=== PATIENT | male | born 1965 | race Caucasian/White ===

== ENCOUNTER → 2019-06-01 08:01 | Outpatient (CLI) | payer MEDICARE, SELFPAY ==
--- NOTE | 2019-06-01 | DI.ECHO.S_ITS ---
[facility] +---------+ : : [address] : : : : [id number] : : : : Phone: [phone]+ Echocardiogram Report + + :Name: AYDEN MONTOYA Study Date: 06/01/2019 Height: 71 in : :[facility] Weight: 300 lb : : Gender: Male BSA: 2.5 m2 : :: 1965 Age: 54 yrs BP: 132/76 mmHg: : Performed By: [facility] : :Referring: REID DAVIS : + + Interpretation Summary 1) Mildly increased left ventricular thickness (concentric) with normal size, normal wall motion, and normal systolic function (EF 55-60%). 2) The right ventricle is mildly dilated. The right ventricular systolic function is normal. 3) No significant valvular abnormalities. 4) The aortic root is borderline dilated at 3.8cm. 5) No prior Echo available for comparison. Procedure: A two-dimensional transthoracic echocardiogram with color flow and Doppler was performed. The study quality was technically adequate. There is no prior echocardiogram noted for this patient. The patient was in normal sinus rhythm during the exam. Left Ventricle: The left ventricle is normal in size. There is mild concentric left ventricular hypertrophy. Left ventricular systolic function is normal without focal wall motion abnormalities. The ejection fraction is estimated to be 55-60%. Left ventricular wall motion is normal. Right Ventricle: The right ventricle is mildly dilated. The right ventricular systolic function is normal. Atria: The left atrial size is normal. Right atrial size is normal. The interatrial septum is intact with no evidence for an atrial septal defect. Mitral Valve: The mitral valve is normal in structure and function. There is trace mitral regurgitation. Aortic Valve: The aortic valve is trileaflet. The aortic valve opens well. There is no aortic valve stenosis. No aortic regurgitation is present. Tricuspid Valve: The tricuspid valve is normal in structure and function. There is trace tricuspid regurgitation. Pulmonary artery pressures cannot be estimated because of the lack of a measurable TR jet velocity. Pulmonic Valve: The pulmonic valve is normal in structure and function. There is mild pulmonic regurgitation. Great Vessels: The aortic root is borderline dilated. The ascending aorta is at the upper limits of normal in size. The pulmonary artery is normal size. The IVC is of normal diameter and collapses greater than 50% with a sniff. This suggests a low right atrial pressure of 3 mm Hg. Pericardium/ Pleura There is no pericardial effusion. There is no pleural effusion. MMode/2D Measurements & Calculations LVIDd: 5.3 cm LVOT diam: 2.3 cm LVIDs: 3.3 cm Ao root diam: 3.8 cm FS: 36.2 % asc Aorta Diam: 3.8 cm EPSS: 0.54 cm IVSd: 1.4 cm LVPWd: 1.3 cm LV vasquez. diameter/BSA (cm/m^2): 2.1 LV sys. diameter/BSA (cm/m^2): 1.3 LA A2 area: 20.7 cm2 RA long axis: 4.7 cm LA A4 area: 19.2 cm2 RA area: 12.2 cm2 LA length (vol): 5.3 cm RA vol: 26.9 ml LA vol: 64.4 ml RA : 10.7 ml/m2 LA vol index: 25.7 ml/m2 TAPSE: 1.9 cm Doppler Measurements & Calculations Ao V2 max: 128.1 cm/sec LVOT Max Brayan: 94.1 cm/sec Ao V2 mean: 87.4 cm/sec LV V1 max P.5 mmHg Ao max P.6 mmHg LV V1 VTI: 22.0 cm Ao mean P.4 mmHg OCTAVIO(I,D): 3.2 cm2 Ao V2 VTI: 27.6 cm OCTAVIO(V,D): 3.0 cm2 sev ratio: 0.80 OCTAVIO indexed to BSA (cm^2/m^2): 1.3 MV E max brayan: 68.1 cm/sec PA V2 max: 71.3 cm/sec MV A max brayan: 50.7 cm/sec PA V2 mean: 49.6 cm/sec MV E/A: 1.3 PA mean P.1 mmHg Med Peak E' Brayan: 8.7 cm/sec PA Accel Time: 0.17 sec E/E' med: 7.9 Lat Peak E' Brayan: 11.3 cm/sec E/E' lat: 6.0 E/e' average: 6.9 MV dec time: 0.19 sec SV(LVOT): 89.3 ml Reading Physician:05:10 PM
== END ==
PROVIDERS: PCP Internal Medicine; Visit Provider Internal Medicine
DX: I37.1 Nonrheumatic pulmonary valve insufficiency (principal); I42.9 Cardiomyopathy, unspecified
CPT/HCPCS: 93306

== ENCOUNTER → 2022-07-29 13:01 | Outpatient (CLI) | payer OTHER, SELFPAY ==
--- NOTE | 2022-07-29 | DI.MRI.S_ITS ---
PROCEDURE: MR CERVICAL SPINE WO CON INDICATIONS: Cervicalgia TECHNIQUE: Noncontrast sagittal T1 spin echo and T2 fast spin echo, sagittal STIR, foraminal oblique sagittal T2 fast spin echo, and axial gradient echo or T2 fast spin echo through the cervical spine. COMPARISON: [facility] [place], [place], XR CERVICAL SPINE WITH OBLIQUES, 07/22/2022, 14:29. FINDINGS: Image quality: There is artifact associated with the metallic hardware. This examination is limited by involuntary motion artifact. Alignment and Curvature: There is overall straightening of the normal cervical lordosis. No focal AP alignment abnormality is seen. Bone Marrow: Marrow demonstrates normal overall signal. Spinal Cord: Visualized spinal cord has normal size and signal. No cerebellar tonsillar herniation. Paraspinous Soft Tissues: No paravertebral masses. Prevertebral soft tissues are normal in thickness. Anteriorly placed fixation devices can be seen at C5-C6 and C6-C7. C2-C3: Normal appearance. C3-C4: Moderate loss of disc height is seen. Loss of disc signal is seen. Mild to moderate disc osteophyte complex is seen. Moderate bilateral neural foraminal narrowing is seen. Minimal central canal narrowing is seen. C4-C5: The disc height is well-preserved. Loss of disc signal is seen at this level. Mild to moderate disc osteophyte complex is seen. Moderate facet joint hypertrophy is seen. There is at least moderate bilateral neural foraminal narrowing seen. Mild to moderate central canal narrowing is seen, with associated minimal mass effect upon the ventral spinal cord. C5-C6: A mild degree of generalized disc osteophyte complex is seen. Mild facet joint hypertrophy is seen. There is mild right-sided and minimal left-sided neural foraminal narrowing. No central canal narrowing is seen. C6-C7: A mild degree of generalized disc osteophyte complex is seen. Mild facet joint hypertrophy is seen. There is at least moderate right-sided and mild left-sided neural foraminal narrowing. The central canal is widely patent. C7-T1: Mild loss of disc height is seen. Loss of disc signal is seen. A mild degree of generalized disc osteophyte complex is seen. Mild facet joint hypertrophy is seen. No significant neural foraminal or central canal narrowing can be seen. IMPRESSION: Postoperative hardware placed anteriorly at C5-C6 and C6-C7. Degenerative changes are seen, which are worst at the C4-C5 level. Dictated by: Lacho Keller M.D. on 07/29/2022 at 13:44 Approved by: Lacho Keller M.D. on 07/29/2022 at 13:47
== END ==
PROVIDERS: PCP Internal Medicine; Referring Provider Physical Medicine & Rehabilitation Pain Medicine; Visit Provider Physical Medicine & Rehabilitation Pain Medicine
DX: M47.812 Spondylosis without myelopathy or radiculopathy, cervical region (principal); M54.2 Cervicalgia
CPT/HCPCS: 72141